=== PATIENT | female | born 1990 | race American Indian/Alaskan Native ===

== ENCOUNTER 2021-03-25 08:14 | Emergency (ER) | payer SELFPAY ==
[2021-03-25] MEDS ORDERED: ADENOSINE 6 MG/2 ML INJ IV ONE (08:15)
--- NOTE | 2021-03-25 08:22 | Emergency Department Report ---
ED Chest Pain HPI - General Stated Complaint: TANA Time Seen by Provider: 03/25/21 08:22 - History of Present Illness Initial Comments: Patient was brought in by ambulance secondary to chest pain and palpitations. She started to have chest pain this morning while at work. She stated her heart was racing. She describes the pain as a tightness and heaviness in the precordial area. She states that her heart was racing as well. EMS was called. Patient was found to be in SVT with a heart rate of 180-200. They attempted adenosine x2 without symptomatic improvement. There was no change in rhythm. They transported the patient here. Upon arrival, patient is still in SVT. She is still complaining of chest tightness. She states that she just cannot catch her breath either. She has never had anything like this happen before. She does not drink a lot of ca ffeine. She has had no recent travel. - Related Data Allergies Allergy/AdvReac Type Severity Reaction Status Date / Time No Known Allergies Allergy Unverified 03/25/21 08:40 Heart Score - HEART Score History: Slightly suspicious EKG: Normal Age: < 45 Risk factors: No known risk factors Troponin: < normal limit (Not done) HEART Score: 0 - EKG Read Time Time EKG Completed: 08:20 EKG Read Time: 08:20 ED Review of Systems ROS: Stated complaint: TANA Other details as noted in HPI Comment: All other systems reviewed and negative Constitutional: denies: fever Eyes: denies: eye pain ENT: denies: throat pain Respiratory: denies: cough Cardiovascular: as per HPI Endocrine: denies: unexplained weight loss Gastrointestinal: denies: abdominal pain Genitourinary: denies: dysuria Musculoskeletal: denies: back pain Skin: denies: rash Neurological: denies: headache Hematological/Lymphatic: denies: easy bruising ED Past Medical Hx - Past Medical History Previous Medical History?: No - Family History Family history: other (Her sister had "heart problems.") ED Physical Exam - General Limitations: No Limitations, Other (Pulse ox was noted and normal. She is not h ypoxic.) General appearance: alert, in distress (Moderate), obese - Head Head exam: Present: atraumatic, normocephalic - Eye Eye exam: Present: normal appearance, EOMI. Absent: scleral icterus - ENT ENT exam: Present: normal exam, normal external ear exam - Neck Neck exam: Present: normal inspection. Absent: meningismus - Respiratory Respiratory exam: Present: normal lung sounds bilaterally. Absent: respiratory distress - Cardiovascular Cardiovascular Exam: Present: tachycardia, other (SVT) - GI/Abdominal GI/Abdominal exam: Present: soft. Absent: tenderness - Extremities Exam Extremities exam: Present: normal capillary refill. Absent: pedal edema - Back Exam Back exam: Absent: CVA tenderness (R), CVA tenderness (L) - Neurological Exam Neurological exam: Present: alert, oriented X3, CN II-XII intact. Absent: motor sensory deficit - Psychiatric Psychiatric exam: Present: anxious - Skin Skin exam: Present: warm, dry ED Course Vital Signs 03/25/21 03/25/21 03/25/21 08:20 08:30 08:36 Pulse Rate 79 79 69 Respiratory 14 13 20 Rate Blood Pressure 110/68 110/68 O2 Sat by Pulse 100 99 98 Oximetry 03/25/21 03/25/21 03/25/21 08:45 09:00 09:16 Pulse Rate 77 79 72 Respiratory 19 15 19 Rate Blood Pressure 110/68 105/48 110/68 O2 Sat by Pulse 97 97 Oximetry 03/25/21 03/25/21 03/25/21 09:30 09:46 10:00 Pulse Rate 69 66 62 Respiratory 19 20 20 Rate Blood Pressure 99/54 99/54 96/48 O2 Sat by Pulse 93 95 97 Oximetry 03/25/21 10:16 Pulse Rate Respiratory Rate Blood Pressure O2 Sat by Pulse 97 Oximetry - Reevaluation(s) Reevaluation #1: 03/25/21 08:27 [id number] was met upon arrival. Adenosine was ordered. After adenosine, patient was in a normal rhythm. Labs have been sent. Old records reviewed. 03/25/21 08:29 Rhythm strip interpretation one: Monitor shows SVT at a rate of 190. There was no obvious ectopy. Monitor was observed 10 seconds. Rhythm strip interpretation two: Monitor shows normal sinus rhythm at a rate of 80. P waves are noted. There is no ectopy. Monitor was observed for 10 seconds. Reevaluation #2: 03/25/21 10:57 Labs are noted and the patient was discharged. She remained in a normal sinus rhythm. DEON score - Deon Score Age > 65: (0) No Aspirin use within the Past 7 Days: (0) No 3 or more CAD Risk Factors: (0) No 2 or more Angina events in past 24 hrs: (0) No Known CAD with more than 50% Stenosis: (0) No Elevated Cardiac Markers: (0) No (Not done) ST Deviation Greater than 0.5mm: (0) No DEON Score: 0 ED Medical Decision Making - Lab Data Result diagrams: 03/25/21 09:18 - EKG Data -: EKG Interpreted by Me EKG shows normal: sinus rhythm, axis, intervals, QRS complexes, ST-T waves - EKG Data When compared to previous EKG there are: previous EKG unavailable 03/25/21 08:28 EKG shows a normal sinus rhythm at 66. Intervals are normal including a QRS of 81 and a QT corrected of 407. There is no ST elevation to suggest STEMI. There is no ST depression suggestive of ischemia. - Medical Decision Making Patient presented with SVT. Etiology for this is unclear. There is no evidence of electrolyte derangement. Patient does not have EKG changes suggestive of WPW. She may benefit from outpatient cardiology study. We have discussed avoidance of stimulants. Patient does not appear to be toxic. She is referred for outpatient management. Critical Care Time: No Critical care attestation.: If time is entered above; I have spent that time in minutes in the direct care of this critically ill patient, excluding procedure time. ED Disposition Clinical Impression: PSVT (paroxysmal supraventricular tachycardia) Disposition: 01 HOME / SELF CARE / HOMELESS Is pt being admited?: No Does the pt Need Aspirin: No Condition: Stable Instructions: Supraventricular Tachycardia, Adult Additional Instructions: Avoid caffeine and other stimulants. Drink plenty water. Return for problems. Follow-up with your regular doctor for recheck and further management. Referrals: PRIMARY CARE, [Primary Care Provider] - 3-5 Days SON HERNANDEZ MD [Staff Physician] - 3-5 Days
[2021-03-25 09:51] LABS: Blood Urea Nitrogen 7 mg/dL (7-17); Calcium 9.2 mg/dL (8.4-10.2); Hemolysis Index 1
[2021-03-25 10:10] LABS: BUN/Creatinine Ratio 12
[2021-03-25 10:16] VITALS: BP 96/48
--- NOTE | 2021-03-29 14:29 | Electrocardiograph Report ---
[facility] Test Date: 2021-03-25 Test Time: 08:20:46 Pat Name: JASE BURGOS Department: Room: Gender: F Slot Tag Inserter: MADAN : 1990 Requested By: ERIN ROBERT Order Number: [id number] Reading MD: Moe Salazar Measurements Intervals [place] Rate: 66 P: 47 ND: 149 QRS: 71 QRSD: 81 T: 47 QT: 390 QTc: 407 Interpretive Statements Sinus rhythm No previous ECG available for comparison Electronically Signed On 03-29-2021 14:29:39 EDT by Moe Salazar
== END 2021-03-25 10:50 | disposition home or self-care (01) ==
LOC: ED 08:14
DX: I47.1 Supraventricular tachycardia (principal)
CPT/HCPCS: 36415; 80048; 83735; 93005; 96374; 99284; J0153

== ENCOUNTER 2021-05-11 07:23 | Emergency (ER) | payer MEDICAID | END 2021-05-11 08:22 | LOC: ED 07:23 | DX: R07.9 Chest pain, unspecified (principal); R06.02 Shortness of breath; Z53.21 Procedure and treatment not carried out due to patient leaving prior to being seen by health care provider ==